=== PATIENT | male | born 1960 | race Hispanic/Latino ===

== ENCOUNTER → 2024-08-10 | Emergency (ER) | payer BC ==
[~2024-08-10] MED LIST: Albumin 25% 100 ML ONE; Furosemide 40 MG (4 mL) VIAL ONE
[2024-08-10 20:48] LABS: #Basophils 0.03 10x3/uL (0.0-0.2); #Eosinophils 0.04 10x3/uL (0.0-0.5); #Monocytes 0.36 10x3/uL (0.0-1.1); #Neutrophils 4.45 10x3/uL (1.5-8.4); %Basophils 0.6 % (0.0-2.0); %Eosinophils 0.7 % (0.0-6.0); %Lymphocytes 10.3 % (18.0-47.0); %Monocytes 6.6 % (0.0-10.0); %Neutrophils 81.6 % (40.0-75.0); Hematocrit 29.1 % (38.8-50.0); Hemoglobin 9.7 g/dL (13.5-17.5); Mean Corpuscular HGB CONC 33.3 g/dL (32.0-36.0); Mean Platelet Volume 10.9 fL (7.4-10.4); Platelet Count 177 10x3/uL (150-450); RBC Distribution Width 12.8 % (11.5-14.5); Red Blood Cell (RBC) Count 3.03 10x6/uL (4.32-5.72); White Blood Cell (WBC) Count 5.5 10x3/uL (3.5-10.5)
[2024-08-10 20:58] LABS: ALT (SGPT) 13 U/L (8-55); AST (SGOT) 15 U/L (5-34); Albumin 2.2 g/dL (3.4-4.8); Alkaline Phosphatase 73 U/L (40-110); Anion Gap 15 mmol/L (10-20); BUN (Urea Nitrogen) 53 mg/dL (8.4-25.7); Bilirubin, Total 0.4 mg/dL (0.2-1.2); Calc. Creatinine Clearance 0 mL/min (70-130); Calcium 8.1 mg/dL (7.8-10.44); Carbon Dioxide 15 mmol/L (23-31); Chloride 109 mmol/L (98-107); Estimated GFR 13; Globulin 3.1 g/dL (2.4-3.5); Glucose 184 mg/dL (80-115); Protein, Total 5.3 g/dL (5.8-8.1); Sodium 134 mmol/L (136-145)
[2024-08-10 21:04] LABS: Troponin I 0.011 ng/mL (< 0.028)
[2024-08-11 00:05] LABS: Actual Bicarbonate (HCO3v) 16.6 mEq/L (22-28); Analyzer IN Cardio CS ER; Calcium, Ionized (venous) 1.14 mmol/L (1.16-1.32); Chloride (VBG) 108 mmol/L (98-106); Critical Notified By: CP.PH; Hematocrit-VBG 32 % (42.0-52.0); Hemoglobin (Hb) 10.9 g/dL (12.6-17.4); Potassium (VBG) 4.87 mmol/L (3.70-5.30); Puncture Site Other Site; Sodium 135 mmol/L (133-146); pH (venous) 7.345 (7.32-7.43)
== END ==
LOC: EDSEX 19:53 → CSHERS 19:53
DX: I11.0 Hypertensive heart disease with heart failure (principal); I50.9 Heart failure, unspecified; N17.9 Acute kidney failure, unspecified; E11.9 Type 2 diabetes mellitus without complications; Z79.02 Long term (current) use of antithrombotics/antiplatelets; Z79.899 Other long term (current) drug therapy
CPT/HCPCS: 36415; 71045; 80053; 82805; 83605; 83880; 84484; 85025; 93005; 94760; 96374; 96375; 96376; J1940; P9047